=== PATIENT | female | born 1950 | race Caucasian/White ===

== ENCOUNTER → 2018-01-15 | Outpatient (CLI) | payer MEDICARE, OTHER | LOC: M.RAD 15:52 | DX: Z12.31 Encounter for screening mammogram for malignant neoplasm of breast (principal); M81.0 Age-related osteoporosis without current pathological fracture; Z78.0 Asymptomatic menopausal state ==

== ENCOUNTER 2018-12-10 08:36 | Inpatient (IN) | payer MEDICARE, OTHER ==
[~2018-12-10] VITALS: Ht 175.3 cm; Wt 68.0 kg
[2018-12-10 08:45] VITALS: BP 139/85
[2018-12-10] MEDS ORDERED: LIORESAL 10 MG10 MG PO (08:57)
[2018-12-10] MEDS ORDERED: SYNTHROID100 MC1 PO (08:57)
[2018-12-10] MEDS ORDERED: LAMICTAL XR100 MG PO (08:58)
[2018-12-10 09:11] LABS: ABSOLUTE BASOPHILS 0.1 thou/uL (0.0-0.2); ABSOLUTE EOSINOPHILS 0.1 thou/uL (0.0-0.7); ABSOLUTE LYMPHOCYTES 2.4 thou/uL (0.8-5.3); ABSOLUTE MONOCYTES 0.6 thou/uL (0.0-1.2); ABSOLUTE NEUTROPHILS 3.4 thou/uL (1.6-8.1); BASOPHILS 1.1 %; EOSINOPHILS 0.9 %; HEMATOCRIT 42.3 % (37.0-47.0); HEMOGLOBIN 14.4 gm/dL (12.0-15.0); LYMPHOCYTES 37.1 %; MCH 29.3 pg (26.0-34.0); MCHC 33.9 g/dL (28.0-37.0); MCV 86.2 fL (80.0-100.0); MONOCYTES 8.6 %; NUCLEATED RBCS 0 /100WBC; PLATELET COUNT* 290 thou/uL (150-400); POLYS 52.3 %; RBC 4.91 mil/uL (4.20-5.00); RDW-CV 13.7 % (10.5-14.5); WBC 6.5 thou/uL (4.0-11.0)
[2018-12-10 09:28] LABS: ANION GAP 10 mmol/L (7-16); BUN 14 mg/dL (7-18); CALCIUM 9.2 mg/dL (8.5-10.1); CHLORIDE 105 mmol/L (98-107); CO2 28 mmol/L (21-32); CREATININE 0.8 mg/dL (0.6-1.3); GLUCOSE 92 mg/dL (70-99); POTASSIUM 3.6 mmol/L (3.5-5.1); SODIUM 143 mmol/L (136-145); TROPONIN-I LEVEL <0.06 ng/mL (<0.06)
[2018-12-10 09:29] LABS: ALBUMIN 3.5 g/dL (3.4-5.0); ALKALINE PHOSPHATASE 77 U/L (46-116); LIPASE 114 U/L (73-393); MAGNESIUM 2.1 mg/dL (1.8-2.4); NT-PRO BRAIN NAT PEPTIDE 105 pg/mL (<300); SGOT 19 U/L (15-37); SGPT 18 U/L (30-65); TOTAL BILIRUBIN 0.4 mg/dL (<0.1-1.0); TOTAL PROTEIN 7.1 g/dL (6.4-8.2)
--- NOTE | 2018-12-10 10:06 | EKG ---
[place] [address] ELECTROCARDIOGRAM REPORT Name: ROCIO BOYD Room: [facility]#: [id number] Admission: 12/10/18 Attend Phys: Discharge: Date of : 54 Report #: [id number] THIS REPORT FOR: //name// [facility] ED Test Date: 2018-12-10 Test Time: 08:43:32 Pat Name: ROCIO BOYD Department: Room: Gender: F Administrative Resources Associate: : 1950 Requested By: Reyes Gonzalez Order Number: [id number] MD: Jean Anne Measurements Intervals [place] Rate: 70 P: 59 IA: 176 QRS: 43 QRSD: 116 T: -4 QT: 405 QTc: 437 Interpretive Statements Sinus rhythm Incomplete right bundle branch block Anterior infarct, old No previous ECG available for comparison Electronically Signed On 12-10-2018 10:06:20 CDT by Jean Anne [email or web address] <ELECTRONICALLY SIGNED> By: Jean Anne MD, [facility] 12/10/18 1006 0843 [id number] Jean Anne MD, FACC /EPI
--- NOTE | 2018-12-10 18:00 | EKG ---
[place] [address] ELECTROCARDIOGRAM REPORT Name: DEBROCIO Renée Room: [place] [address] ADM [place] [facility]#: [id number] Admission: 12/10/18 Attend Phys: Chandrika Olmos Discharge: Date of : 54 Report #: [id number] THIS REPORT FOR: //name// [facility] ED Test Date: 2018-12-10 Test Time: 10:46:10 Pat Name: ROCIO BOYD Department: Room: [facility] Gender: F Side Door Man: ILIA : 1950 Requested By: Reyes Gonzalez Order Number: [id number] MD: Jean Anne Measurements Intervals [place] Rate: 48 P: 24 HI: 190 QRS: 20 QRSD: 123 T: 2 QT: 451 QTc: 403 Interpretive Statements Sinus bradycardia Nonspecific intraventricular conduction delay Anterior infarct, old Compared to ECG 12/10/2018 08:43:32 Intraventricular conduction delay now present Sinus rhythm no longer present Myocardial infarct finding still present Electronically Signed On 12-10-2018 18:00:46 CDT by Jean Anne [email or web address] <ELECTRONICALLY SIGNED> By: Jean Anne MD, FACC 12/10/18 1800 1046 1046 Jean Anne MD, [facility] /EPI
[2018-12-10 18:12] VITALS: BP 108/65
[2018-12-10 18:20] VITALS: BP 116/77
[2018-12-10 20:00] VITALS: BP 110/67
[2018-12-11] VITALS: BP 107/67
[2018-12-11 04:33] VITALS: BP 105/68
[2018-12-11 08:20] VITALS: BP 118/81
--- NOTE | 2018-12-11 15:47 | CARDNUC ---
[place] [address] CARDIAC NUCLEAR IMAGING REPORT Name: ROCIO BOYD Renée Room: [address] IN [facility]#: [id number] Admission: 12/10/18 Attend Phys: Adan Mahmood Discharge: Date of : 54 Date of Service: 12/11/18 1546 Report #: [id number] THIS REPORT FOR: //name// APPROVED REPORT Study performed: 12/11/2018 08:54:00 Indication: Chest pain, Dizziness, increased weakness. Patient Location: In-Patient Stress Tech: Yaquelin Dunaway Stress Nurse: Lola Angel RN Ht: 5 ft 9 in Wt: 150 lbs BSA: 1.83 m2 BMI: 22.14 Medical History Medical History: Angina, Dizziness, increased weakness, Fatigue. Medications: ASA 325 MG, NTG. Allergies: No known drug allergies Cardiac Risk Factors: Age, FHX of CAD. Previous Cardiac Procedures: None Pretest Chest Pain Characteristics: No chest pain Exercise History: Physically active Physical Disabilities: Generalized weakness, Dizzyiness. Meds Held (24 hrs): NTG. Resting Data Rest SPECT myocardial perfusion imaging was performed in supine position 30 minutes following the intravenous injection of 12.0 mCi of Tc-99m Sestamibi. Time of rest injection: 10:00 The images were gated to evaluate regional wall motion and calculate left ventricular ejection fraction. Administration Route: IV Administration Site: Left AC Pharmacologic Stress Pharmacologic stress test was performed by injecting Regadenoson 0.4 mg IV push over 10-15 seconds immediately followed by the intravenous injection of 31.7 mCi of Tc-99m Sestamibi. Time of stress injection: 11:40 Administration Route: IV Administration Site: Left AC Heart Rate at time of stress injection: [address] [place] [address] CARDIAC NUCLEAR IMAGING REPORT Name: ROCIO BOYD Room: [address] IN ..#: [id number] Admission: 12/10/18 Attend Phys: Adan Mahmood Discharge: Date of : 54 Date of Service: 12/11/18 1546 Report #: [id number] Gated Stress SPECT was performed 40 minutes after stress injection. The images were gated to evaluate regional wall motion and calculate left ventricular ejection fraction. Prone imaging was performed. Stress Test Details Stress Test: Pharmacologic stress testing performed using 0.4 mg of regadenoson per 5 mL given IV over 10 seconds. Reason for pharmacologic stress test: Generalized weakness, Dizziness.. HR Max Heart Rate (APMHR): 155 bpm Resting HR: 76 bpm Target HR (85% APMHR): 131 bpm Max HR Achieved: 118 bpm % of APMHR: 76 Recovery HR: 92 bpm BP Resting BP: 118/90 mmHg Max BP: 145/76 mmHg Recovery BP: 119/85 mmHg ECG Resting ECG: Sinus Rhythm Stress ECG: Sinus Tachycardia ST Change: None Arrhythmia: None Recovery ECG: Sinus Rhythm Recovery ST Change: None Recovery Arrhythmia: None Clinical Reason for Termination: Completed protocol Stress Symptoms: Dyspnea The patient tolerated Lexiscan infusion without significant symptoms. Nurse Comments 67 year old female inpatient presented with recent HX of CP, Dizziness, and generalized weakness. A walking Lexiscan was attempted but ECG readings were not readable, too much artifact, consequently, patient was moved to a sitting Lexiscan resulting in much improved ECG print out. Patient tolerated stress test well. Recovery was unremarkable with PO caffeine. Patient was escorted via wheelchair by staff to Nuclear Medicine for images. Patient was stable with no [place] [address] CARDIAC NUCLEAR IMAGING REPORT Name: ROCIO BOYD Room: [address]#: [id number] Admission: 12/10/18 Attend Phys: Adan Mahmood Discharge: Date of : 54 Date of Service: 12/11/18 1546 Report #: [id number] Stress ECG Conclusion The baseline 12-lead EKG shows sinus rhythm with no significant ST or T wave abnormalities. EKGs obtained during and post Lexiscan infusion show sinus rhythm and sinus tachycardia with no significant ST or T wave changes when compared to baseline. There were no stress-induced arrhythmias. Study Quality Study: Good Artifact: No artifact Study Data At rest, the left ventricular ejection fraction was 68%.. Post stress, the left ventricular ejection was 79%.. TID = 0.79. Perfusion Normal left ventricular perfusion. Wall Motion Normal left ventricular wall motion. Nuclear Conclusion ECG Findings: negative for ischemia Clinical Findings: negative for ischemia Nuclear Findings: negative for ischemia Exercise Capacity: not assessed Left Ventricular Function: normal Risk Study: low Myocardial perfusion images show no defect to suggest infarct or ischemia. Left ventricular systolic function appears normal on gated studies. This is a low risk study. <Conclusion> The baseline 12-lead EKG shows sinus rhythm with no significant ST or T wave abnormalities. EKGs obtained during and post Lexiscan infusion show sinus rhythm and sinus tachycardia with no significant ST or T wave changes when compared to baseline. There were no stress-induced arrhythmias. <ELECTRONICALLY SIGNED> By: Shemar Gastelum MD, FACC 12/11/18 1546 1546 1546 Shemar Gastelum MD, FACC /INF
[2018-12-11] MEDS ORDERED: ASPIRIN325 PO (16:06)
[2018-12-11 16:07] VITALS: BP 118/81
[2018-12-11 16:22] VITALS: BP 125/78
== END 2018-12-11 17:00 | disposition home or self-care (01) | DRG 303 ==
LOC: M.ERS 08:36 → M.TBA-ER 11:48 → M.2W 11:48
PROVIDERS: Emergency Medicine Emergency Medical Services; ADMIT Internal Medicine
DX: I25.10 Atherosclerotic heart disease of native coronary artery without angina pectoris (principal); I49.8 Other specified cardiac arrhythmias; G50.0 Trigeminal neuralgia; E03.9 Hypothyroidism, unspecified; Z79.82 Long term (current) use of aspirin; Z79.899 Other long term (current) drug therapy

== ENCOUNTER → 2019-10-21 | Outpatient (CLI) | payer MEDICARE, OTHER ==
[~2019-10-21] MED LIST: ASPIRIN325 PO; LAMICTAL XR100 MG PO; LIORESAL 10 MG10 MG PO; SYNTHROID100 MC1 PO
== END ==
LOC: M.RAD 14:39
DX: Z12.31 Encounter for screening mammogram for malignant neoplasm of breast (principal)

== ENCOUNTER → 2020-03-19 | Outpatient (CLI) | payer MEDICARE, OTHER | LOC: M.RAD 13:30 | PROVIDERS: ATTEND Nurse Practitioner | DX: M81.0 Age-related osteoporosis without current pathological fracture (principal) ==

== ENCOUNTER → 2020-05-07 | Outpatient (CLI) | payer MEDICARE, OTHER | LOC: M.CT 15:25 | PROVIDERS: ATTEND Family Medicine | DX: R25.1 Tremor, unspecified (principal); R51 Headache; R29.90 Unspecified symptoms and signs involving the nervous system ==

== ENCOUNTER → 2020-05-14 | Outpatient (CLI) | payer MEDICARE, OTHER | LOC: M.MRI 11:10 | PROVIDERS: ATTEND Family Medicine | DX: R51 Headache (principal); R25.1 Tremor, unspecified; R29.90 Unspecified symptoms and signs involving the nervous system ==

== ENCOUNTER → 2020-12-22 | Outpatient (CLI) | payer MEDICARE, OTHER | LOC: M.RAD 09:00 | PROVIDERS: ATTEND Family Medicine | DX: Z12.31 Encounter for screening mammogram for malignant neoplasm of breast (principal) ==

== ENCOUNTER → 2021-10-11 | Outpatient (CLI) | payer MEDICARE, OTHER ==
[~2021-10-11] MED LIST changes: +IBU800 MG PO
== END ==
LOC: M.LAB 11:12
PROVIDERS: ATTEND Orthopaedic Surgery
DX: Z01.812 Encounter for preprocedural laboratory examination (principal); Z20.822 Contact with and (suspected) exposure to COVID-19

== ENCOUNTER → 2021-10-12 | Day surgery (SDC) | payer MEDICARE, OTHER ==
[~2021-10-12] MED LIST changes: +MACROBID 100 M100 MG PO
[2021-10-12 09:36] LABS: HEMATOCRIT 41.4 % (37.0-47.0); HEMOGLOBIN 13.8 gm/dL (12.0-15.0); MCH 29.3 pg (26.0-34.0); MCHC 33.4 g/dL (28.0-37.0); MCV 87.7 fL (80.0-100.0); MPV 7.6 fl. (7.2-11.1); RBC 4.72 mil/uL (4.20-5.00); RDW-CV 13.7 % (10.5-14.5); WBC 7.1 thou/uL (4.0-11.0)
[2021-10-12 09:49] LABS: CALCIUM 8.6 mg/dL (8.5-10.1); CREATININE 0.7 mg/dL (0.6-1.3)
--- NOTE | 2021-10-12 11:05 | EKG ---
[place] [address] ELECTROCARDIOGRAM REPORT Name: ROCIO BOYD Room: [facility]#: [id number] Admission: 10/12/21 Attend Phys: Jorge Turner, Discharge: Date of : 54 Date of Service: 10/12/21 1009 Report #: [id number] THIS REPORT FOR: //name// [facility] Test Date: 2021-10-12 Test Time: 10:09:06 Pat Name: ROCIO BOYD Department: Room: Gender: It Security Administrator: Arti CABALLERO RN : 1950 Requested By: Valdez Yepez Order Number: [id number] Kandice MD: Frankie Pineda Measurements Intervals [place] Rate: 55 P: 30 DC: 176 QRS: 27 QRSD: 112 T: 9 QT: 444 QTc: 425 Interpretive Statements Sinus rhythm Borderline intraventricular conduction delay Compared to ECG 12/10/2018 10:46:10 Sinus bradycardia no longer present Electronically Signed On 10-12-2021 11:05:38 TILE MOLDER HAND by Frankie Pineda [email or web address] <ELECTRONICALLY SIGNED> By: Frankie Pineda MD, [facility] 10/12/21 1105 1009 1009 Frankie Pineda MD, [facility] /EPI
--- NOTE | 2021-10-19 12:21 | OP ---
[address] [address] OPERATIVE REPORT Name: ROCIO BOYD Room: [facility]#: [id number] Admission: 10/12/21 Attend Phys: Jorge Turner II Discharge: Date of : 54 Report #: [id number] THIS REPORT FOR: cc: Annabella Mejia Linda J. DO Greiner, Robert F. II DO ~ DATE OF SURGERY: 10/12/2021 PREOPERATIVE DIAGNOSIS: Left olecranon fracture. POSTOPERATIVE DIAGNOSIS: Left olecranon fracture. PROCEDURE: Open reduction internal fixation of left olecranon fracture. SURGEON: Jorge Turner II, DO SAUSAGE MACHINE OPERATOR: BRAD Kaufman. ANESTHESIA: Per operative record. ESTIMATED BLOOD LOSS: Minimal. ANTIBIOTICS: Per operative record. DRAINS: None. COMPLICATIONS: None. DISPOSITION: The patient stable to recovery room. IMPLANTS USED: [employer] plate. DESCRIPTION OF PROCEDURE: The patient was taken to the operative suite, placed supine on the table, given appropriate anesthesia. The patient's left arm was sterilely prepped and draped in the lateral beanbag position. Incision was then made over the olecranon, carried down to subcutaneous tissues. The fracture was then found. Excess clot was removed from around the fracture site. C-arm was utilized to evaluate the fracture fragments and reduced in near anatomic fashion utilizing a pointed reduction forceps. This was held in appropriate position with a K-wire. The olecranon plate was then applied over the posterior aspect of the elbow to align the olecranon in near anatomic fashion. This was then held in place utilizing the sliding hole screw and two longer screws were then placed through the posterior proximal aspect of the fracture to secure it into position. One additional screw was utilized to secure the plate in place. C-arm was utilized for both. X-rays, AP and lateral directions showing excellent anatomic position. Irrigation was then [place] [address] OPERATIVE REPORT Name: ROCIO BOYD Room: [facility].#: [id number] Admission: 10/12/21 Attend Phys: Jorge Turner II Discharge: Date of : 54 Report #: [id number] was then closed over the plate utilizing a #1 Vicryl and 2-0 Vicryl. Skin was closed with 2-0 Vicryl in a running nylon stitch. Dermabond and sterile dressing and a sling were applied as well as a posterior splint. The patient transported to recovery in stable condition. Counts were correct. <ELECTRONICALLY SIGNED> By: Jorge Turner II, DO 10/19/21 1221 2303 [id number] Turner II, DO /nt
== END | disposition home or self-care (01) ==
LOC: M.SUR 09:11
PROVIDERS: Anesthesiology; ATTEND Orthopaedic Surgery
DX: S52.022A Displaced fracture of olecranon process without intraarticular extension of left ulna, initial encounter for closed fracture (principal); Z98.890 Other specified postprocedural states; Z79.899 Other long term (current) drug therapy; X58.XXXA Exposure to other specified factors, initial encounter; Y93.89 Activity, other specified; Y92.89 Other specified places as the place of occurrence of the external cause; Y99.8 Other external cause status

== ENCOUNTER 2021-10-19 19:43 | Emergency (ER) | payer MEDICARE, OTHER ==
[~2021-10-19] VITALS: Ht 175.3 cm; Wt 70.3 kg
[~2021-10-19 19:43] MED LIST changes: -MACROBID 100 M100 MG PO
[2021-10-19 22:36] LABS: CALCIUM 8.4 mg/dL (8.5-10.1); CREATININE 0.6 mg/dL (0.6-1.3); POTASSIUM 3.8 mmol/L (3.5-5.1)
[2021-10-19 22:40] LABS: ABSOLUTE BASOPHILS 0.1 thou/uL (0.0-0.2); ABSOLUTE MONOCYTES 0.6 thou/uL (0.0-1.2); ABSOLUTE NEUTROPHILS 9.7 thou/uL (1.6-8.1); BASOPHILS 0.5 %; EOSINOPHILS 0.3 %; HEMATOCRIT 36.1 % (37.0-47.0); HEMOGLOBIN 11.9 gm/dL (12.0-15.0); MCH 28.4 pg (26.0-34.0); MCHC 32.8 g/dL (28.0-37.0); MCV 86.4 fL (80.0-100.0); MONOCYTES 5.3 %; MPV 7.7 fl. (7.2-11.1); NUCLEATED RBCS 0 /100WBC; PLATELET COUNT* 307 thou/uL (150-400); POLYS 84.9 %; RBC 4.18 mil/uL (4.20-5.00); RDW-CV 13.5 % (10.5-14.5); WBC 11.4 thou/uL (4.0-11.0)
[2021-10-19 23:30] LABS: URINE BILIRUBIN NEGATIVE (Negative); URINE BLOOD TRACE (Negative); URINE CLARITY CLEAR; URINE COLOR YELLOW; URINE GLUCOSE-RANDOM NEGATIVE (Negative); URINE KETONES TRACE (Negative); URINE LEUKOCYTES-REFLEX NEGATIVE (Negative); URINE NITRITE-REFLEX NEGATIVE (Negative); URINE PROTEIN NEGATIVE (Negative); URINE SPECIFIC GRAVITY 1.015 (1.005-1.030); URINE UROBILINOGEN 0.2 E.U./dl (0.2-1.0)
[2021-10-20] MEDS ORDERED: MACROBID 100 M100 MG PO (00:02)
[2021-10-20 00:29] VITALS: BP 135/88
== END 2021-10-20 00:24 | disposition home or self-care (01) ==
LOC: M.ERS 19:43
PROVIDERS: Physician Assistant Medical
DX: R33.9 Retention of urine, unspecified (principal); G50.0 Trigeminal neuralgia; Z90.89 Acquired absence of other organs; Z79.899 Other long term (current) drug therapy